=== PATIENT | female | born 2000 | race Hispanic/Latino ===

== ENCOUNTER 2022-04-17 06:34 | Day surgery (SDC) | payer MEDICAID ==
[2022-04-16 15:13] LABS: BASOPHILS % (AUTO) 0.6 % (0.0-5.0); EOSINOPHILS % (AUTO) 1.1 % (0.0-8.0); HEMATOCRIT 40.1 % (36-48); MEAN CORPUSCULAR HEMOGLOBIN 27.2 pg (27.0-33.0); MEAN CORPUSCULAR HGB CONC 33.9 g/dL (32.0-36.0); MEAN CORPUSCULAR VOLUME 80.2 fL (79-99); MONOCYTES % (AUTO) 5.9 % (3.0-13.0); NEUTROPHILS % (AUTO) 71.1 % (40.0-77.0); PLATELET COUNT (AUTO) 287 K/uL (130-400); RED CELL DISTRIBUTION WIDTH 13.4 % (11.0-15.5); WHITE BLOOD COUNT (AUTO) 10.5 K/uL (4.8-10.8)
[2022-04-16 15:15] VITALS: BP 107/63
[2022-04-16 15:26] LABS: CREATININE 0.8 mg/dL (0.5-1.5); POTASSIUM 3.8 mmol/L (3.5-5.1)
[2022-04-17] VITALS (15 sets, daily range): BP systolic 98–126; BP diastolic 66–81
[~2022-04-17] VITALS: Ht 175.3 cm; Wt 90.1 kg
[~2022-04-17 06:34] MED LIST: LIDOCAINE HCL 1% 20 ML VIAL ONE; SEMA1PEN3 SQ
[2022-04-17] MEDS ORDERED: LIDOCAINE 1%-EPI 1:100,000 20 ML VIAL IJ SCH (07:00)
[2022-04-17] MEDS ORDERED: LACTATED RINGERS 1000ML 1,000 ML IV ONE (07:05)
[2022-04-17] MEDS ORDERED: MIDAZOLAM HCL 1 MG/ML 2ML VIAL ONE (07:19)
[2022-04-17] MEDS ORDERED: FENTANYL CITRATE PF 50 MCG/1 ML 2ML VIAL ONE (07:19)
[2022-04-17] MEDS ORDERED: SUCCINYLCHOLINE CHLORIDE 20 MG/ML 10 ML VIAL ONE (07:20)
[2022-04-17] MEDS ORDERED: CEFAZOLIN SODIUM 1 GM VIAL IV ONE (07:42)
[2022-04-17] MEDS ORDERED: LIDOCAINE HCL 1% 10 ML VIAL INJ ONE (07:45)
[2022-04-17] MEDS ORDERED: ONDANSETRON 4MG INJ ONE (07:59)
[2022-04-17] MEDS ORDERED: TYL3LL PO (09:30)
== END 2022-04-17 10:15 | disposition home or self-care (01) ==
LOC: DAH 06:34
PROVIDERS: ATTEND Otolaryngology Plastic Surgery within the Head & Neck
DX: J35.01 Chronic tonsillitis (principal); Z20.822 Contact with and (suspected) exposure to COVID-19; Z88.8 Allergy status to other drugs, medicaments and biological substances
CPT/HCPCS: 80048; 84703; 85025; 87426; 36415; 42826; 88304 ×2; 93005; A6260; J7120; J3010; J0690; J0330; J2250; J2405; J3490; A4215; A4223; A4222; A4221; A4663

== ENCOUNTER 2022-04-18 12:07 | Emergency (ER) | payer MEDICAID ==
[~2022-04-18] VITALS: Ht 175.3 cm; Wt 88.0 kg
[~2022-04-18 12:07] MED LIST changes: -LIDOCAINE HCL 1% 20 ML VIAL ONE; +TYL3LL PO
[2022-04-18 12:34] VITALS: BP_DIAS 118
== END 2022-04-18 14:10 | disposition left against medical advice (07) ==
LOC: EDH 12:07
DX: M25.69 Stiffness of other specified joint, not elsewhere classified (principal); Z53.21 Procedure and treatment not carried out due to patient leaving prior to being seen by health care provider